=== PATIENT | female | born 1980 | race Caucasian/White ===

== ENCOUNTER 2018-08-22 11:09 | Emergency (ER) | payer SELFPAY ==
[2018-08-22 11:22] VITALS: BP 129/84
--- NOTE | 2018-08-22 11:55 | ER Document Report ---
ED Medical Screen (RME) - General Chief Complaint: Chest Pain Stated Complaint: CHEST PAIN Time Seen by Provider: 08/22/18 11:48 Notes: 37-year-old female patient complaining of onset yesterday of pain in her left anterior neck and feeling like something is moving in that area when she swallows. She thinks this is related to eating at [employer] 6 days ago, even though the symptoms started yesterday. She still has been coughing trying to cough up her cough out what she feels in her neck. She also reports left anterior chest pain that started this morning. At triage she had repeat ported difficulty closing the left eye, however there does not appear to be any facial motor deficits at this time. She is quite tender to palpate the left anterior cervical region and the anterior border of the sternocleidomastoid muscle in the upper neck at the gel. I have greeted and performed a rapid initial assessment of this patient. A comprehensive ED assessment and evaluation of the patient, analysis of test results and completion of the medical decision making process will be conducted by additional ED providers. TRAVEL OUTSIDE OF THE U.S. IN LAST 30 DAYS: No - Related Data Allergies/Adverse Reactions: No Known Allergies Allergy (Unverified 08/22/18 11:11) Physical Exam - Vital signs Vitals: Temp Pulse Resp BP Pulse Ox 97.2 F 82 18 129/84 H 99 08/22/18 11:20 08/22/18 11:20 08/22/18 11:20 08/22/18 11:20 08/22/18 11:20 Course - Vital Signs Vital signs: Temp Pulse Resp BP Pulse Ox 97.2 F 82 18 129/84 H 99 08/22/18 11:20 08/22/18 11:20 08/22/18 11:20 08/22/18 11:20 08/22/18 11:20
[2018-08-22 12:23] LABS: ABSOLUTE LYMPHOCYTES (AUTO) 2.4 10^3/uL (0.5-4.7); ABSOLUTE MONOCYTES (AUTO) 0.5 10^3/uL (0.1-1.4); ABSOLUTE NEUT (AUTO) 4.6 10^3/uL (1.7-8.2); BASOPHILS % (AUTO) 0.4 % (0-2); EOSINOPHILS % (AUTO) 0.4 % (0-6); HEMATOCRIT 46.2 % (36.0-47.0); HEMOGLOBIN 15.8 g/dL (12.0-15.5); LYMPHOCYTES % (AUTO) 31.4 % (13-45); MEAN CORPUSCULAR HEMOGLOBIN 30.2 pg (27.0-33.4); MEAN CORPUSCULAR HGB CONC 34.3 g/dL (32.0-36.0); MEAN CORPUSCULAR VOLUME 88 fl (80-97); MONOCYTES % (AUTO) 6.9 % (3-13); PLATELET COUNT 380 10^3/uL (150-450); RED BLOOD COUNT 5.25 10^6/uL (3.72-5.28); RED CELL DISTRIBUTION WIDTH 13.8 % (11.5-14.0); SEGMENTED NEUTROPHILS % (AUTO) 60.9 % (42-78); TOTAL CELLS COUNTED % (AUTO) 100 %; WHITE BLOOD COUNT 7.5 10^3/uL (4.0-10.5)
--- NOTE | 2018-08-22 12:38 | ER Document Report ---
ED General - General Chief Complaint: Chest Pain Stated Complaint: CHEST PAIN Time Seen by Provider: 08/22/18 11:48 TRAVEL OUTSIDE OF THE [place].S. IN LAST 30 DAYS: No - HPI Notes: Patient is a 37-year-old female with a history of anxiety who presents to the ED complaining of foreign body sensation in the left side of her neck times 2 days. Patient states that she was eating at [employer] and is not sure if she inhaled food or something got stuck at that time. Patient states that her symptoms really did not start until couple days after. Patient is that she has been trying to cough and vomit something up, but has not had any resolution of her symptoms. She is still able to eat and drink, but does have soreness with swallowing. Patient states that she also has pressure around her left ear and states that her left side of her tongue will go tingling at times. Patient states in addition to the symptoms which is her primary complaint and concern for coming, she does have left upper chest pain that is worse when she pushes on it and states that it feels like "muscles." Denies drug allergies IV drug abuse. No other concerns or complaints. Denies any headache, fever, neck pain , changes in vision/speech/mentation/hearing, hoarseness, drooling, URI, palpitations, syncope, cough, shortness of breath, wheeze, dyspnea, abdominal pain, nausea/vomiting/diarrhea, urinary retention, dysuria, hematuria, or rash. - Related Data Allergies/Adverse Reactions: No Known Allergies Allergy (Unverified 08/22/18 11:11) Past Medical History - Social History Smoking Status: Current Every Day Smoker Chew tobacco use (# tins/day): Yes - occasionally Frequency of alcohol use: Social Drug Abuse: None Family History: Reviewed & Not Pertinent Patient has suicidal ideation: No Patient has homicidal ideation: No Renal/ Medical History: Denies: Hx Peritoneal Dialysis Past Surgical History: Reports: Hx Tubal Ligation Review of Systems - Review of Systems -: Yes All other systems reviewed and negative Physical Exam - Vital signs Vitals: Temp Pulse Resp BP Pulse Ox 97.2 F 82 18 129/84 H 99 08/22/18 11:20 08/22/18 11:20 08/22/18 11:20 08/22/18 11:20 08/22/18 11:20 - Notes Notes: PHYSICAL EXAMINATION: GENERAL: Well-appearing, well-nourished and in no acute distress. A&Ox4. Answers questions appropriately. HEAD: Atraumatic, normocephalic. EYES: Pupils equal round and reactive to light, extraocular movements intact, sclera anicteric, conjunctiva are normal. ENT: EAC clear b/l. TM's intact b/l without erythema, fluid, or perforation. Nares patent and with clear discharge. oropharynx mild erythema without exudates. 1+ tonsilar hypertrophy without erythema or exudate. No palatine shift. Uvula midline. No tongue protrusion. No swollen uvula. No drooling, hoarseness, or airway compromise. Moist mucous membranes. No sinus tenderness. No dental tenderness/abscess. NECK: Normal range of motion, supple with possible small anterior cerv chain/ submandibular lymphadenopathy. No rigidity/meningismus. Chest: + reproducible tenderness to palpation of the Lt upper pectoral area and reproducible with arm extension/abduction. LUNGS: Breath sounds clear to auscultation bilaterally and equal. No wheezes rales or rhonchi. HEART: Regular rate and rhythm without murmurs, rubs, gallops. ABDOMEN: Soft, nontender, nondistended abdomen. No guarding, no rebound. No masses appreciated. Normal bowel sounds present. No CVA tenderness bilaterally. Musculoskeletal: FROM to passive/active. Strength 5+/5. Cari neg. No asymmetry to LE's. Extremities: No cyanosis, clubbing, or edema b/l. Peripheral pulses 2+. Capillary refill less than 3 seconds. NEUROLOGICAL: NIH 0. Cranial nerves grossly intact. Normal speech, normal gait. Sensation intact throughout. Motor normal. PSYCH: Normal mood, normal affect. SKIN: Warm, Dry, normal turgor, no rashes or lesions noted. Course - Re-evaluation Re-evalutation: 08/22/18 12:[address] Benavides as patient was threatening to leave if we did not do any imaging for her neck. We agreed to perform a CT soft tissue to further evaluate this foreign body sensation. Pt in agreement with the rest of the work up thereafter and I will have social work talk to her as she does not have insurance. Pt is aware of the risk/benefit of radiation exposure and current work up. 11/26/18 16:01 Patient is an afebrile, well-hydrated 37-year-old female who presents to the ED with chest wall pain and foreign body sensation in neck, unspecified. Vitals are acceptable without any significant tachycardia, tachypnea, or hypoxia. PE is otherwise unremarkable aside from the reproducible chest wall tenderness. Patient is nontoxic-appearing and is tolerating p.o. without any difficulties. Rapid strep neg, cx pending. CBC, CMP, EKG/cardiac enzyme, chest x-ray, CT neck are all unremarkable for any acute pathology. Patient has a heart score of 1, Wells score of 0, and is PERC negative. Patient does not have any chest pain, dyspnea, or shortness of breath. Patient's presentation and symptomatology creates low suspicion for ACS, PE, pneumothorax, pericarditis, dissection, respiratory compromise, severe dehydration, sepsis, meningitis, or other systemic emergent condition at this time. Patient is aware that this condition can change from initial presentation and she needs to monitor symptoms closely and seek medical attention for any acute changes. Financial counseling spoke with the patient. Recommend conservative measures for symptoms. Recheck with your PCM in 3-5 days. Consider consult with ENT. Return to the ED with any worsening/concerning symptoms otherwise as reviewed in discharge. Patient is in agreement. - Vital Signs Vital signs: Temp Pulse Resp BP Pulse Ox 97.2 F 82 18 129/84 H 99 08/22/18 11:20 08/22/18 11:20 08/22/18 11:20 08/22/18 11:20 08/22/18 11:20 - Laboratory Result Diagrams: 08/22/18 12:07 08/22/18 12:40 Laboratory results interpreted by me: 08/22/18 12:07 Hgb 15.8 H Discharge - Discharge Clinical Impression: Foreign body sensation in throat, Chest wall pain Condition: Stable Disposition: HOME, SELF-CARE Instructions: Chest Wall Pain ([facility]) Additional Instructions: Maintain adequate fluid and food intake Take home medications as directed healthy diet Monitor symptoms for any acute changes Recheck with your PCM in 3-5 days Consider a follow-up with ENT/GI Return to the ED with any worsening symptoms and/or development of fever, headache, chest pain, palpitations, syncope, shortness of breath, trouble breathing, abdominal pain, n/v/d, blood in stool/urine, loss of control of bowel /bladder, urinary retention, muscle weakness/paralysis, numbness/tingling, or other worsening symptoms that are concerning to you. Forms: Elevated Blood Pressure, Smoking Cessation Education Referrals: GREG REA DO [ASSOCIATE] - Follow up as needed KODY JACKSON MD [ACTIVE STAFF] - Follow up as needed
--- NOTE | 2018-08-22 12:46 | EKG REPORT ---
SEVERITY:- NORMAL ECG - SINUS RHYTHM : Confirmed by: Kaz Garcia MD 22-Aug-2018 12:46:00
[2018-08-22 13:14] LABS: ALANINE AMINOTRANSFERASE 46 U/L (9-52); ALBUMIN 4.7 g/dL (3.5-5.0); ALKALINE PHOSPHATASE 60 U/L (38-126); ANION GAP 13 (5-19); ASPARTATE AMINO TRANSFERASE 29 U/L (14-36); BILIRUBIN,DIRECT 0.2 mg/dL (0.0-0.4); BILIRUBIN,TOTAL 0.6 mg/dL (0.2-1.3); BLOOD UREA NITROGEN 16 mg/dL (7-20); CALCIUM 9.8 mg/dL (8.4-10.2); CARBON DIOXIDE 27 mmol/L (22-30); CHLORIDE 102 mmol/L (98-107); GLUCOSE 96 mg/dL (75-110); POTASSIUM 4.4 mmol/L (3.6-5.0); SODIUM 141.9 mmol/L (137-145); TOTAL PROTEIN 7.9 g/dL (6.3-8.2)
--- NOTE | 2018-08-22 14:33 | RADIOLOGY REPORT (SQ) ---
EXAM DESCRIPTION: CT SOFT TISSUE NECK WITH COMPLETED DATE/TIME: 08/22/2018 2:21 pm REASON FOR STUDY: foreign body sensation, left side COMPARISON: None. TECHNIQUE: Post IV contrasted scanning from skull base through lung apices with review of bone, soft tissue and lung windows. Reconstructed coronal and sagittal MPR images reviewed. All images stored on PACS. All CT scanners at this facility use dose modulation, iterative reconstruction, and/or weight based d osing when appropriate to reduce radiation dose to as low as reasonably achievable (ALARA). [facility]: Dose Right [facility]: CareDose [facility]: Dose Right [facility]: Teradose 4D [facility]: [email or web address] CONTRAST TYPE AND DOSE: contrast/concentration: Isovue 350.00 mg/ml; Total Contrast Delivered: 75.0 ml; Total Saline Delivered: 45.1 ml RENAL FUNCTION: GFR > 60. RADIATION DOSE: CT Rad equipment meets quality standard of care and radiation dose reduction techniq ues were employed. CTDIvol: 15.6 mGy. DLP: 481 mGy-cm. . LIMITATIONS: None. FINDINGS: SKULL BASE: Intact. MAJOR SALIVARY GLANDS: No solid or cystic masses. No inflammatory changes. LYMPHADENOPATHY: No adenopathy. MUCOSAL MASSES OR ASYMMETRY: No mucosal masses or asymmetry. LARYNX/CORDS: No abnormal findings. VASCULAR STRUCTURES: The major vessels are patent. LUNG APICES: Clear. BONES: Intact. THYROID: Normal size. No masses. PARANASAL SINUSES: Clear. OTHER: No other significant finding. IMPRESSION: NO SIGNIFICANT FINDING IN THE SOFT TISSUES OF THE NECK. TECHNICAL DOCUMENTATION: JOB ID: [id number] Quality ID # [id number]: Final reports with documentation of one or more dose reduction techniques (e.g., Au tomated exposure control, adjustment of the mA and/or kV according to patient size, use of iterative reconstruction technique) 2010 [employer]- All Rights Reserved Reading location - IP/workstation name: [email or web address]
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
== END 2018-08-22 16:19 | disposition home or self-care (01) ==
LOC: ER 11:09
DX: R09.89 Other specified symptoms and signs involving the circulatory and respiratory systems (principal); R07.89 Other chest pain; R20.2 Paresthesia of skin; J35.1 Hypertrophy of tonsils; F17.200 Nicotine dependence, unspecified, uncomplicated
CPT/HCPCS: 36415; 70491; 71045; 80053; 84484; 85025; 87070; 87880; 93005; 93010; 99285

== ENCOUNTER 2018-08-25 22:00 | Emergency (ER) | payer SELFPAY ==
[2018-08-25] MEDS ORDERED: ACETAMINOPHEN 325 MG TABLET PO ONE (22:16)
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
[2018-08-25] MEDS ORDERED: IBUPROFEN 600 MG TABLET PO ONE (23:21)
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
[2018-08-26] MEDS ORDERED: OXYCODONE HCL IR 5 MG TABLET PO ONE (01:16)
[2018-08-26] MEDS ORDERED: HYDROCODONE/ACETAMINOPHEN 5-325 MG (6 TAB/ER DISP) PO PRN (02:26)
[2018-08-26 02:34] VITALS: BP 113/65
== END 2018-08-26 02:34 | disposition home or self-care (01) ==
LOC: ER 22:00
PROC: 2W3DX1Z Immobilization of Left Lower Arm using Splint (ICD-10-PCS; principal; 2018-08-25)
DX: S62.336A Displaced fracture of neck of fifth metacarpal bone, right hand, initial encounter for closed fracture (principal); H92.02 Otalgia, left ear; R51 Headache; M79.641 Pain in right hand; R68.84 Jaw pain; Y04.8XXA Assault by other bodily force, initial encounter; F17.200 Nicotine dependence, unspecified, uncomplicated
CPT/HCPCS: 70450; 99284